=== PATIENT | female | born 1945 | race Caucasian/White ===

== ENCOUNTER 2021-11-25 01:10 | Day surgery (SDC) | payer MEDICARE, OTHER, SELFPAY ==
[2021-11-08 13:48] VITALS: BMI 32.7
--- NOTE | 2021-11-24 12:35 | P.PNAN_ITS ---
Anes - Initial Pre Proc Eval Procedure: Operation Date: 11/25/21 08:30 Proposed Procedures p Screening Colonoscopy - Kobi Hunt MD Date/Time: 11/24/21 12:35 Surgeon: Kobi Hunt MD Pre Op Diagnosis: hx of colon polyps Patient Data Age: 76 Gender: F Height: 1.63 m Weight: 86.5 kg Allergies Allergy/AdvReac Type Severity Reaction Status Date / Time No Known Allergies Allergy Mild Verified 11/25/21 07:43 Home Medications Medication Instructions Recorded Confirmed Type aspirin 81 mg tablet,delayed 81 mg PO DAILY 09/01/21 11/08/21 History release atorvastatin 80 mg tablet 80 mg PO DAILY #90 tabs 09/01/21 11/08/21 Rx losartan 100 See Rx Instructions .Route 09/01/21 11/08/21 Rx mg-hydrochlorothiazide 12.5 mg .COMPLEX #90 tabs tablet metformin 500 mg tablet 500 mg PO BID #180 tabs 09/01/21 11/08/21 Rx metoprolol succinate 100 mg See Rx Instructions .Route 09/01/21 11/08/21 Rx tablet,extended release 24 hr .COMPLEX #90 tabs Patient hx anesthesia problems: none Family hx anesthesia problems: none Results Review: All pre-operative results and documents have been reviewed as part of the pre- operative evaluation. [facility] Past Medical History Medical History (Updated 11/24/21 @ 12:35 by Arik España DO) BMI 32.0-32.9,adult Essential (primary) hypertension Mixed hyperlipidemia Screening for colon cancer Type 2 diabetes mellitus without complications Uterine cancer Surgical History Surgical History (Updated 11/24/21 @ 12:35 by Arik España DO) History of appendectomy History of cholecystectomy History of hysterectomy for cancer Family History Family History Father Hypertension Family history of coronary artery disease Mother Hypertension Cerebrovascular accident Social History Social History Smoking status: Never smoker Second hand tobacco smoke exposure: No Alcohol intake: current Drinks per week: 3 Substance use: never Substance use type: does not use Living arrangements: with family Gender identity (if verbalized by the patient): Female Sexual Orientation (if Verbalized by the Patient): Straight or Heterosexual Spiritual care concerns: No Anes - Eval Final PreProcedure Day of Procedure 11/24/21 12:35 Patient weight: obese Heart: regular rate and rhythm Lungs: clear to auscultation Airway: Mallampati scale class II Neurological: alert and oriented Last oral intake: >/= 8 hours ASA classification: III Emergent: no Anesthetic plan: proceed Anesthesia type and monitoring: general GIVS and standard monitoring Results Review: All pre-operative results and documents have been reviewed as part of the pre-operative evaluation. Informed Consent: The patient's anesthetic plan and its attendant risks and benefits were discussed with the patient/family/POA. Questions were solicited and answers provided to the satisfaction of the patient/family/POA.
[2021-11-25 07:42] LABS: Glucose Point of Care 154 mg/dl (65-105)
[2021-11-25 07:44] VITALS: BP 120/74; PULSE 69; RESP 18; TEMP 36.4; O2SAT 98; BMI 32.5
--- NOTE | 2021-11-25 07:46 | SUR.PREOP ---
Accuchek is 89
[2021-11-25] MEDS: LACTATED RINGERS 1,000 ML 150 ML IV CONT (07:58)
--- NOTE | 2021-11-25 08:09 | PM.HPGS ---
History of Present Illness History of Present Illness Consent: Risks, benefits, and alternatives have been discussed and questions answered. Patient agrees to proceed with procedure. Chief complaint: hx of colon polyps Narrative: Camelia López is a 76 year old female here for screening colonoscopy, last one about 12 years ago Review of Systems Constitutional: Constitutional: Denies headache(s) and Denies weakness Eyes: Eyes: Denies blurry vision ENT: Reports Normal hearing present, Denies headache(s) and Denies neck pain Cardiovascular: Cardiovascular: Denies chest pain and Denies dyspnea Respiratory: Respiratory: Denies dyspnea Gastrointestinal: Gastrointestinal: Reports no additional gastrointestinal complaints Genitourinary: Genitourinary: Denies dysuria Musculoskeletal: Musculoskeletal: Denies neck pain Integumentary/Breasts: Skin/Breast: Denies dry skin Neurologic: Reports Normal hearing present, Denies headache(s) and Denies weakness Psychiatric: Psychiatric: Denies anxiety Endocrine: Endocrine: Denies change in body appearance Hematologic/Lymphatic: Hematologic/Lymphatic: Denies easy bleeding Allergic/Immunologic: Allergic/Immunologic: Denies urticaria PMFSH Past Medical History Medical History (Updated 11/24/21 @ 12:35 by Arik España DO) BMI 32.0-32.9,adult Essential (primary) hypertension Mixed hyperlipidemia Screening for colon cancer Type 2 diabetes mellitus without complications Uterine cancer Surgical History Surgical History (Updated 11/24/21 @ 12:35 by Arik España DO) History of appendectomy History of cholecystectomy History of hysterectomy for cancer Family History Family History Father Hypertension Family history of coronary artery disease Mother Hypertension Cerebrovascular accident Social History Social History Smoking status: Never smoker Second hand tobacco smoke exposure: No Alcohol intake: current Drinks per week: 3 Substance use: never Substance use type: does not use Living arrangements: with family Gender identity (if verbalized by the patient): Female Sexual Orientation (if Verbalized by the Patient): Straight or Heterosexual Spiritual care concerns: No Meds Home Medications and Allergies Home Medications Medication Instructions Recorded Confirmed Type aspirin 81 mg tablet,delayed 81 mg PO DAILY 09/01/21 11/25/21 History release atorvastatin 80 mg tablet 80 mg PO DAILY #90 tabs 09/01/21 11/25/21 Rx losartan 100 See Rx Instructions .Route 09/01/21 11/25/21 Rx mg-hydrochlorothiazide 12.5 mg .COMPLEX #90 tabs tablet metformin 500 mg tablet 500 mg PO BID #180 tabs 09/01/21 11/25/21 Rx metoprolol succinate 100 mg See Rx Instructions .Route 09/01/21 11/25/21 Rx tablet,extended release 24 hr .COMPLEX #90 tabs Allergies Allergy/AdvReac Type Severity Reaction Status Date / Time No Known Allergies Allergy Mild Verified 11/25/21 07:43 Vital Signs Vital Signs - 24 hr 11/25/21 07:44 Temperature 97.6 F Pulse Rate 69 Respiratory Rate 18 Blood Pressure 120/74 Pulse Oximetry 98 Oxygen Delivery Room Air Exam Const: General: comfortable and no acute distress HENMT: General nose exam: Normal nares present Eyes: General: appearance normal, both eyes and all related structures Neck: Neck: no JVD Resp: Auscultation: clear to auscultation bilaterally Cardio: Rate: regular rate Rhythm: regular rhythm GI: Inspection: non-distended GI Palp: Yes Soft to palpation Skin: General skin exam: normal color Neuro: General: gait normal Speech: normal speech Extrem: General: normal to inspection Psych: Mental Status: mental status grossly normal Assessment and Plan Assessment and plan (1) Screening for colon cancer: Code(s): Z12.11 - Encounter for screenin
[2021-11-25 08:31] VITALS: BP 88/53; PULSE 60; RESP 23; O2SAT 98
[2021-11-25 08:41] VITALS: BP 99/63; PULSE 58; RESP 22; O2SAT 96
[2021-11-25 08:51] VITALS: BP 107/66; PULSE 64; RESP 20; O2SAT 100
== END 2021-11-25 09:03 | disposition home or self-care (01) ==
PROVIDERS: PCP Family Medicine; Visit Provider Internal Medicine Gastroenterology
PROC: 0DJD8ZZ Inspection of Lower Intestinal Tract, Via Natural or Artificial Opening Endoscopic (ICD-10-PCS; CPT 45378; principal; 2021-11-25 08:30)
DX: Z12.11 Encounter for screening for malignant neoplasm of colon (principal); K64.8 Other hemorrhoids; Z86.010 Personal history of colon polyps; I10 Essential (primary) hypertension; E78.2 Mixed hyperlipidemia; E11.9 Type 2 diabetes mellitus without complications; Z85.42 Personal history of malignant neoplasm of other parts of uterus; E66.9 Obesity, unspecified; Z68.32 Body mass index [BMI] 32.0-32.9, adult; Z79.82 Long term (current) use of aspirin; Z79.84 Long term (current) use of oral hypoglycemic drugs
CPT/HCPCS: G0105; 82948; J2704; J7120